=== PATIENT | female | born 1980 | race Caucasian/White ===

== ENCOUNTER 2018-02-03 10:59 | Emergency (ER) | END 2018-02-03 14:34 | disposition home or self-care (01) ==

== ENCOUNTER 2018-02-22 09:50 | Emergency (ER) | END 2018-02-22 12:49 | disposition home or self-care (01) ==

== ENCOUNTER 2018-07-10 09:09 | Emergency (ER) | END 2018-07-10 11:51 | disposition home or self-care (01) ==

== ENCOUNTER 2019-02-19 16:10 | Emergency (ER) | payer MEDICAID ==
[~2019-02-19] VITALS: Ht 165.1 cm; Wt 70.3 kg
[~2019-02-19 16:10] MED LIST: DOCU-144 PO; FER325 PO; IBUP-1542 PO; IBUP-1561 PO; MEDR10TA2 PO; NORE-90 PO
[2019-02-19 16:31] VITALS: Ht 165.1 cm; Wt 70.3 kg
[2019-02-19] MEDS ORDERED: ONDANSETRON (ODT) 4 MG TAB ODT STA (18:10)
[2019-02-19] MEDS ORDERED: KETOROLAC 30 MG INJ IM STA (18:10)
[2019-02-19] MEDS ORDERED: IBUP-1542 PO (19:38)
[2019-02-19] MEDS ORDERED: ACET-141 PO (19:38)
[2019-02-19] MEDS ORDERED: ONDA4TAB14 PO (19:39)
--- NOTE | 2019-02-19 19:39 | ERD ---
ER Documentation Chief Complaint Chief Complaint pt has bacon 08/01 x 2 weeks ROS All systems reviewed and are negative except as per history of present illness. Medications Home Meds Active Scripts Ondansetron (Ondansetron Odt) 4 Mg Tab.rapdis, 4 MG PO Q6H PRN for NAUSEA AND/OR VOMITING, #15 TAB Prov:KARENOKSANA 02/19/19 Acetaminophen* (Acetaminophen*) 500 MG Extra Strength Tablet, 500 MG PO Q4H PRN for PAIN AND OR ELEVATED TEMP, #30 TAB Prov:OKSANA JONES DO 02/19/19 Ibuprofen* (Motrin*) 600 Mg Tab, 600 MG PO Q6H PRN for PAIN AND OR ELEVATED TEMP, #30 TAB Prov:OKSANA JONES DO 02/19/19 Docusate Sodium* (Colace*) 100 Mg Capsule, 100 MG PO TID, #30 CAP Prov:REID WIN PA-C 07/10/18 Ferrous Sulfate* (Ferrous Sulfate*) 325 Mg Tabec, 325 MG PO DAILY, #30 TAB Prov:REID WIN PA-C 07/10/18 Norethindrone-E.estradiol-Iron (Loestrin Fe 1.5-30 Tablet) 1 Each Tablet, 1 EACH PO DAILY, #30 TAB Prov:REID WIN PA-C 07/10/18 Ibuprofen* (Motrin*) 600 Mg Tab, 600 MG PO Q6, #30 TAB Prov:BEAR PABLO PA-C 02/22/18 Ibuprofen* (Motrin*) 400 Mg Tab, 400 MG PO Q8 for 5 Days, #15 TAB Prov:NOA FORRESTER MD 02/03/18 Medroxyprogesterone Acetate* (Provera*) 10 Mg Tablet, 10 MG PO DAILY, #7 TAB Prov:NOA FORRESTER MD 02/03/18 Allergies Allergies: Coded Allergies: No Known Allergy (Unverified , 02/19/19) PMhx/Soc History of Surgery: Yes (CSX1, Appendectomy) Anesthesia Reaction: No Hx Neurological Disorder: No Hx Respiratory Disorders: No Hx Cardiac Disorders: No Hx Psychiatric Problems: No Hx Miscellaneous Medical Probl: No Hx Alcohol Use: No Hx Substance Use: No Hx Tobacco Use: No Smoking Status: Never smoker Physical Exam Vitals Vital Signs Date Temp Pulse Resp B/P (MAP) Pulse Ox O2 O2 Flow FiO2 Time Delivery Rate 02/19/19 98.6 79 18 142/82 100 16:31 (102) Physical Exam Const: No acute distress Head: Atraumatic Eyes: Normal Conjunctiva ENT: Normal External Ears, Nose and Mouth. Neck: Full range of motion. No meningismus. Resp: Clear to auscultation bilaterally Cardio: Regular rate and rhythm, no murmurs Abd: Soft, non tender, non distended. Normal bowel sounds Skin: No petechiae or rashes Back: No midline or flank tenderness Ext: No cyanosis, or edema Neur: Awake and alert Psych: Normal Mood and Affect Results 24 hrs Laboratory Tests Test 02/19/19 18:30 POC Beta HCG, Qualitative NEGATIVE Current Medications Medications Dose Sig/Antonio Start Time Status Last (Trade) Ordered Route PRN Stop Time Admin Dose Reason Admin Ketorolac 30 mg ONCE STAT 02/19/19 DC 02/19/19 Tromethamine IM 18:10 18:31 (Toradol) 02/19/19 18:11 Ondansetron 4 mg ONCE STAT 02/19/19 DC 02/19/19 HCl (Zofran ODT 18:10 18:32 Odt) 02/19/19 18:11 Departure Diagnosis: Primary Impression: Headache Condition: Fair Patient Instructions: Self-Care for Headaches Referrals: COMMUNITY CLINICS YOU HAVE RECEIVED A MEDICAL SCREENING EXAM AND THE RESULTS INDICATE THAT YOU DO NOT HAVE A CONDITION THAT REQUIRES URGENT TREATMENT IN THE EMERGENCY DEPARTMENT. FURTHER EVALUATION AND TREATMENT OF YOUR CONDITION CAN WAIT UNTIL YOU ARE SEEN IN YOUR DOCTORS OFFICE WITHIN THE NEXT 1-2 DAYS. IT IS YOUR RESPONSIBILITY TO MAKE AN APPOINTMENT FOR FOLOW-UP CARE. IF YOU HAVE A PRIMARY DOCTOR --you should call your primary doctor and schedule an appointment IF YOU DO NOT HAVE A PRIMARY DOCTOR YOU CAN CALL OUR PHYSICIAN REFERRAL HOTLINE AT IF YOU CAN NOT AFFORD TO SEE A PHYSICIAN YOU CAN CHOSE FROM THE FOLLOWING [facility] CLINICS [facility] [address] [facility] [address] [facility]. [facility] [address] [facility] [address] [facility]. [facility] [address] [facility] [facility]. [address] Additional Instructions: Llame al doctor MAANA y nicci jennifer NOAH PARA DENTRO DE 1-2 GREER.Dgale a la secretaria que nosotros le instruimos hacer esta noah.Avise o llame si vega condicin se empeora antes de la noah. Regresa aqui si peor o no mejor. OKSANA JONES DO Feb 19, 2019 19:39
[2019-02-19 19:40] VITALS: BP 145/82; PULSE 88; RESP 18
== END 2019-02-19 19:40 | disposition home or self-care (01) ==
LOC: FTE 16:10
DX: R51 Headache (principal)
CPT/HCPCS: 81025; 96372; J1885; Z7502; Z7610

== ENCOUNTER 2019-05-03 12:37 | Emergency (ER) | payer MEDICAID ==
[~2019-05-03] VITALS: Ht 149.9 cm; Wt 72.6 kg
[~2019-05-03 12:37] MED LIST changes: +ACET-141 PO; +ONDA4TAB14 PO
[2019-05-03 12:57] VITALS: BP 154/86; PULSE 75; RESP 20; Ht 149.9 cm; Wt 72.6 kg
[2019-05-03] MEDS ORDERED: ONDANSETRON 4 MG INJ IV STA (13:33)
[2019-05-03] MEDS ORDERED: ACETAMINOPHEN 500 MG TAB PO STA (13:33)
[2019-05-03] MEDS ORDERED: SOD CHLORIDE 0.9% 1,000 ML IV STA (13:33)
[2019-05-03] MEDS ORDERED: NITR-58 PO (15:02)
--- NOTE | 2019-05-03 15:06 | ERD ---
ER Documentation Chief Complaint Chief Complaint 6weeks preg with vag heavy bleeding/clots x1day 1pad/1hr or more with PARTIDA HPI 39-year-old female is here complaining of 3 days of vaginal bleeding. She states the first 2 days are very heavy with approximately 1 pad per hour with clots but now it is very light. She states she took a test at home and it was positive. she has been thinks she has no nausea or vomiting but does have headache. She does have urinary frequency. She has been seen multiple times in the past for dysfunctional uterine bleeding. She has not followed up with [facility]. ROS All systems reviewed and are negative except as per history of present illness. Medications Home Meds Active Scripts Nitrofurantoin Monohyd Macrocr* (Macrobid*) 100 Mg Capsr, 100 MG PO BID for 7 Days, CAP Prov:JANINA WILKINS PA-C 05/03/19 Ondansetron (Ondansetron Odt) 4 Mg Tab.rapdis, 4 MG PO Q6H PRN for NAUSEA AND/OR VOMITING, #15 TAB Prov:OKSANA JONES DO 02/19/19 Acetaminophen* (Acetaminophen*) 500 MG Extra Strength Tablet, 500 MG PO Q4H PRN for PAIN AND OR ELEVATED TEMP, #30 TAB Prov:OKSANA JONES DO 02/19/19 Ibuprofen* (Motrin*) 600 Mg Tab, 600 MG PO Q6H PRN for PAIN AND OR ELEVATED TEMP, #30 TAB Prov:OKSANA JONES DO 02/19/19 Docusate Sodium* (Colace*) 100 Mg Capsule, 100 MG PO TID, #30 CAP Prov:REID WIN PA-C 07/10/18 Ferrous Sulfate* (Ferrous Sulfate*) 325 Mg Tabec, 325 MG PO DAILY, #30 TAB Prov:REID WIN PA-C 07/10/18 Norethindrone-E.estradiol-Iron (Loestrin Fe 1.5-30 Tablet) 1 Each Tablet, 1 EACH PO DAILY, #30 TAB Prov:REID WIN PA-C 07/10/18 Ibuprofen* (Motrin*) 600 Mg Tab, 600 MG PO Q6, #30 TAB Prov:BEAR PABLO PA-C 02/22/18 Ibuprofen* (Motrin*) 400 Mg Tab, 400 MG PO Q8 for 5 Days, #15 TAB Prov:NOA FORRESTER MD 02/03/18 Medroxyprogesterone Acetate* (Provera*) 10 Mg Tablet, 10 MG PO DAILY, #7 TAB Prov:NOA FORRESTER MD 02/03/18 Allergies Allergies: Coded Allergies: No Known Allergy (Unverified , 02/19/19) PMhx/Soc History of Surgery: Yes (CSX1, Appendectomy) Anesthesia Reaction: No Hx Neurological Disorder: No Hx Respiratory Disorders: No Hx Cardiac Disorders: No Hx Psychiatric Problems: No Hx Miscellaneous Medical Probl: No Hx Alcohol Use: No Hx Substance Use: No Hx Tobacco Use: No Smoking Status: Never smoker FmHx Family History: No diabetes Physical Exam Vitals Vital Signs Date Temp Pulse Resp B/P (MAP) Pulse Ox O2 O2 Flow FiO2 Time Delivery Rate 05/03/19 98.1 75 20 154/86 98 12:57 (108) Physical Exam INITIAL VITAL SIGNS: Reviewed by me GENERAL: Awake, alert and oriented x 4, well appearing, nontoxic, speaking in full sentences. No acute distress HEAD: Atraumatic RESPIRATORY: Clear to auscultation bilaterally. Symmetric chest wall rise. No wheezing or rales. No accessory muscle use. CV: Regular rate and rhythm. No murmurs, rubs, or gallops. ABDOMEN: Soft, non-distended. Nontender. Negative [place]. Negative [place] point tenderness. No CVA tenderness bilaterally. No guarding. No rebound. 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 [facility] Malgor[place]ata Result Diagram: 05/03/19 1343 Results 24 hrs Laboratory Tests Test 05/03/19 13:43 White Blood Count 10.9 10^3/ul Red Blood Count 5.09 10^6/ul Hemoglobin 13.5 g/dl Hematocrit 43.1 % Mean Corpuscular Volume 84.7 fl Mean Corpuscular Hemoglobin 26.5 pg Mean Corpuscular Hemoglobin Concent 31.3 g/dl Red Cell Distribution Width 14.5 % Platelet Count 334 10^3/UL Mean Platelet Volume 9.2 fl Immature Granulocytes % 0.300 % Neutrophils % 56.6 % Lymphocytes % 35.9 % Monocytes % 5.1 % Eosinophils % 1.4 % Basophils % 0.7 % Nucleated Red Blood Cells % 0.0 /100WBC Immature Granulocytes # 0.030 10^3/ul Neutrophils # 6.2 10^3/ul Lymphocytes # 3.9 10^3/ul Monocytes # 0.6 10^3/ul Eosinophils # 0.2 10^3/ul Basophils # 0.1 10^3/ul Nucleated Red Blood Cells # 0.0 10^3/ul Urine Color RED Urine Clarity CLEAR Urine pH 6.0 Urine Specific [place] 1.005 Urine Ketones NEGATIVE mg/dL Urine Nitrite NEGATIVE mg/dL Urine Bilirubin NEGATIVE mg/dL Urine Urobilinogen NEGATIVE mg/dL Urine Leukocyte Esterase NEGATIVE Mayi/ul Urine Microscopic RBC > 182 /HPF Urine Microscopic WBC 32 /HPF Urine Squamous Epithelial Cells FEW /HPF Urine Bacteria FEW /HPF Urine Hemoglobin 3+ mg/dL Urine Glucose NEGATIVE mg/dL Urine Total Protein 1+ mg/dl Beta HCG, Quantitative < 2.4 mIU/ml Current Medications Medications Dose Sig/Antonio Start Time Status Last (Trade) Ordered Route PRN Stop Time Admin Dose Reason Admin Sodium 1,000 ml @ Q1H STAT 05/03/19 DC 05/03/19 Chloride 1,000 mls/hr IV 13:33 13:58 05/03/19 14:32 Ondansetron 4 mg ONCE STAT 05/03/19 DC 05/03/19 HCl (Zofran IV 13:33 13:57 Inj) 05/03/19 13:34 1,000 mg ONCE STAT 05/03/19 DC 05/03/19 Acetaminophen PO 13:33 13:57 (Tylenol 05/03/19 13:34 Tab) Procedures/MDM Patient has dysfunctional uterine bleeding. She states that her test at home was positive however her beta hCG at this time is less than 2.4 and her ultrasound is negative. She is hemodynamically stable. No evidence of anemia. Urine shows multiple blood and white blood cells. She will be treated with Macrobid. She was also given outpatient [facility] clinic list follow-up. Patient counseled regarding my diagnostic impression and care plan. Prior to discharge all questions answered. Pt agrees with treatment plan and understands strict return precautions. Pt is instructed to follow up with primary care provider within 24-48 hours. Precautionary instructions provided including instructions to return to the ER if not improving or for any worsening or changing symptoms or concerns. Departure Diagnosis: Primary Impression: Cystitis Additional Impression: Dysfunctional uterine bleeding Condition: Stable Patient Instructions: Dysfunctional Uterine Bleeding Referrals: [facility] [place] [address] [facility] [address] [place] [address] OFFICE FAX , NATALIA [address] [place], [place] [id number] [address] DODD, [place] [address] [place] [address] [address] SCHMITT, [facility] [address] [facility], [address], [facility] [address] [address] [facility] [address] [place] [address] [facility] [address] [place] [address] [address] [facility] [address] [address] MCCONNELL, MARY [address] [facility] [facility] [address] [address] GRANADOS, [place] [address] [facility]. [address], [facility] [address] [address] UGALDE, [facility] [address] [place], [place] [id number] Additional Instructions: Llame al doctor MAANA y nicci jennifer NOAH PARA DENTRO DE 1-2 GREER.Dgale a la secretaria que nosotros le instruimos hacer esta noah.Avise o llame si vega condicin se empeora antes de la noah. Regresa aqui si peor o no mejor. JANINA WILKINS PA-C May 03, 2019 15:06
== END 2019-05-03 15:45 | disposition home or self-care (01) ==
LOC: FTE 12:37
DX: N30.90 Cystitis, unspecified without hematuria (principal); R10.2 Pelvic and perineal pain
CPT/HCPCS: 36415; 76801; 76817; 81001; 84702; 85025; 86900; 86901; 96374; J2405; J7030; Z7502; Z7610